=== PATIENT | female | born 1990 | race Two or more races ===

== ENCOUNTER 2017-01-11 20:04 | Emergency (ER) | payer OTHER ==
[2017-01-11 20:28] VITALS: BP 114/81
--- NOTE | 2017-01-11 21:02 | EDM.PDOC ---
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 01/11/17 [Rx] Past Medical History Neurological History: Reports: Migraines Social & Family History - Tobacco Use Smoking Status *Q: Never Smoker - Caffeine Use Caffeine Use: Reports: None - Recreational Drug Use Recreational Drug Use: No ED ROS GENERAL - Review of Systems Review Of Systems: See Below Constitutional: Reports: chills, decreased appetite. Denies: fever Respiratory: Reports: no symptoms Cardiovascular: Reports: No symptoms GI/Abdominal: Reports: Abdominal pain (patient reports central upper epigastric abdominal pain that intially started about 2 weeks ago with acute onset and then resovled. Returned today, unprovoked by eating/drinking. ), Diarrhea (has had diarrhea on one occasion, but not persistent. No blood in stool. ), Decreased appetite. Denies: Nausea, Vomiting : Reports: flank pain (left flank pain). Denies: dysuria, frequency, hematuria, urgency Musculoskeletal: Reports: neck pain (on re-evaluation, patient does also report left sided lateral neck pain and pain to palpation along base of neck. Neck reportedly feels 'stiff'. no injury that she is aware of.), back pain (back pain started about 2 weeks ago, to lower midline lumbar spine, denies any injury ) Neurological: Reports: dizziness (on re-assessment, patient reports she has also had dizziness x 3 weeks, does not occur with positional changes. Denies any associated headaches, vision changes, does appear to be more noticeable towards the end of the day. She denies any change in diet/liquid intake, denies excess caffeine use. ) ED EXAM, RENAL/ - Physical Exam Exam: See Below Exam Limited By: No limitations General Appearance: alert, WD/WN, no apparent distress Ears: normal external exam, normal TMs Neck: other (patient has tenderness to posterior left lateral apsect of cervical spine, along left trapezius. She has normal, uninhibited range of motion, tenderness along left latera SCM muscle) Course - Vital Signs Text/Narrative:: 2149 Patient reports her central epigastric abdominal pain has slightly improved, but she is still having upper lumbar back pain. I did advise that i was awaiting her labs and abdominal xray, inquired if she needed anything for pain or nausea, and she declined stating she was okay for now. 2226 Did review labs and xray with patient. This was done through use of spinning frame cleaner video services. Patient did add that her abdominal pain started following her eating spicy chicken soup and a soda. She did also add that she has felt dizzy x 3 weeks and having left sided neck stiffness. She denies any change to activity, heavy lifting, or change in sleep positions. She has not tried any OTC treatment. She reports dizziness has been occasional, worse throughout the day, not associated with any vision changes, headache and that pain is present when she opens her mouth. Did advise I would obtain orthostatics prior to her leaving to ensure they are normal. Did advise that I will recommend starting a PPI, increasing water intake, and recommendations for trial of meclizine and OTC NSAIDS and refer to family practice if symptoms not improving. Last Recorded V/S: Last Vital Signs Temp 98.1 F 01/11/17 20:25 Pulse 87 01/11/17 20:25 Resp 16 01/11/17 20:25 BP 114/81 01/11/17 20:25 Pulse Ox 100 01/11/17 20:25 Orthostatic Blood Pressure [ 106/81 Standing] Orthostatic Blood Pressure [ 108/74 Sitting] Orthostatic Blood Pressure [ 104/72 Supine] - Orders/Labs/Meds Labs: Laboratory Tests 01/11/17 01/11/17 01/11/17 Range/Units 21:00 21:00 21:03 WBC 7.27 (3.98-10.04) K/mm3 RBC 4.33 (3.98-5.22) M/mm3 Hgb 13.3 (11.2-15.7) gm/L Hct 40.1 (34.1-44.9) % MCV 92.6 (79.4-94.8) fl MCH 30.7 (25.6-32.2) pg MCHC 33.2 (32.2-35.5) g/dl RDW Std Deviation 42.6 (36.4-46.3) fL Plt Count 212 (182-369) K/mm3 MPV 10.6 (9.4-12.3) fl Neut % (Auto) 73.0 H (34.0-71.1) % Lymph % (Auto) 15.0 L (19.3-51.7) % [place] % (Auto) 11.0 (4.7-12.5) % Eos % (Auto) 0.8 (0.7-5.8) Baso % (Auto) 0.1 (0.1-1.2) % Neut # 5.30 (1.56-6.13) K/mm3 Lymph # 1.09 L (1.18-3.74) K/mm3 [place] # 0.80 H (0.24-0.36) K/mm3 Eos # 0.06 (0.04-0.36) K/mm3 Baso # 0.01 (0.01-0.08) K/mm3 Sodium (136-145) mEq/L Potassium (3.5-5.1) mEq/L Chloride (98-107) mEq/L Carbon Dioxide (21-32) mEq/L Anion Gap (5-15) BUN (7-18) mg/dL Creatinine (0.55-1.02) mg/dL Est Cr Clr Drug Dosing Estimated GFR (MDRD) (>60) mL/min BUN/Creatinine Ratio (14-18) Glucose (74-106) mg/dL Calcium (8.5-10.1) mg/dL Total Bilirubin (0.2-1.0) mg/dL AST (15-37) U/L ALT (14-59) U/L Alkaline Phosphatase (46-116) U/L C-Reactive Protein (<1.0) mg/dL Total Protein (6.4-8.2) g/dl Albumin (3.4-5.0) g/dl Globulin gm/dL Albumin/Globulin Ratio (1-2) Urine Color Light yellow (Yellow) Urine Appearance Clear (Clear) Urine pH 7.0 (5.0-8.0) Ur Specific [place] 1.020 (1.005-1.030) Urine Protein Negative (Negative) Urine Glucose (UA) Negative (Negative) Urine Ketones Negative (Negative) Urine Occult Blood Negative (Negative) Urine Nitrite Negative (Negative) Urine Bilirubin Negative (Negative) Urine Urobilinogen 0.2 (0.2-1.0) Ur Leukocyte Esterase Negative (Negative) Urine RBC Not seen (0-5) /hpf Urine WBC 0-5 (0-5) /hpf Ur Squamous Epith Cells 0-5 (0-5) /hpf Urine Bacteria Few (FEW) /hpf Urine Mucus Not seen (FEW) /hpf Urine HCG, Qual Negative (NEGATIVE) H. pylori IgG Antibody (NEGATIVE) 01/11/17 01/11/17 Range/Units 21:03 21:03 WBC (3.98-10.04) K/mm3 RBC (3.98-5.22) M/mm3 Hgb (11.2-15.7) gm/L Hct (34.1-44.9) % MCV (79.4-94.8) fl MCH (25.6-32.2) pg MCHC (32.2-35.5) g/dl RDW Std Deviation (36.4-46.3) fL Plt Count (182-369) K/mm3 MPV (9.4-12.3) fl Neut % (Auto) (34.0-71.1) % Lymph % (Auto) (19.3-51.7) % [place] % (Auto) (4.7-12.5) % Eos % (Auto) (0.7-5.8) Baso % (Auto) (0.1-1.2) % Neut # (1.56-6.13) K/mm3 Lymph # (1.18-3.74) K/mm3 [place] # (0.24-0.36) K/mm3 Eos # (0.04-0.36) K/mm3 Baso # (0.01-0.08) K/mm3 Sodium 139 (136-145) mEq/L Potassium 3.7 (3.5-5.1) mEq/L Chloride 103 (98-107) mEq/L Carbon Dioxide 26 (21-32) mEq/L Anion Gap 13.7 (5-15) BUN 11 (7-18) mg/dL Creatinine 0.7 (0.55-1.02) mg/dL Est Cr Clr Drug Dosing TNP Estimated GFR (MDRD) > 60 (>60) mL/min BUN/Creatinine Ratio 15.7 (14-18) Glucose 103 (74-106) mg/dL Calcium 8.7 (8.5-10.1) mg/dL Total Bilirubin 0.3 (0.2-1.0) mg/dL AST 14 L (15-37) U/L ALT 22 (14-59) U/L Alkaline Phosphatase 62 (46-116) U/L C-Reactive Protein < 0.2 (<1.0) mg/dL Total Protein 7.4 (6.4-8.2) g/dl Albumin 4.2 (3.4-5.0) g/dl Globulin 3.2 gm/dL Albumin/Globulin Ratio 1.3 (1-2) Urine Color (Yellow) Urine Appearance (Clear) Urine pH (5.0-8.0) Ur Specific [place] (1.005-1.030) Urine Protein (Negative) Urine Glucose (UA) (Negative) Urine Ketones (Negative) Urine Occult Blood (Negative) Urine Nitrite (Negative) Urine Bilirubin (Negative) Urine Urobilinogen (0.2-1.0) Ur Leukocyte Esterase (Negative) Urine RBC (0-5) /hpf Urine WBC (0-5) /hpf Ur Squamous Epith Cells (0-5) /hpf Urine Bacteria (FEW) /hpf Urine Mucus (FEW) /hpf Urine HCG, Qual (NEGATIVE) H. pylori IgG Antibody Negative (NEGATIVE) Departure - Departure Time of Disposition: 22:48 Disposition: Home, Self-Care 01 Condition: good Clinical Impression: Abdominal pain, Back pain, Cervicalgia, Dizziness Prescriptions: Naproxen [EC-Naprosyn] 500 mg PO BID #30 tablet. Instructions: Abdominal Pain, Adult, [id number] Referrals: PCP,None [Primary Care Provider] - Lakeshia Tom PA-C [Emergency Provider] - Forms: ED Department Discharge Additional Instructions: Your lab work from today was normal. Your abdominal xray did not show any acute findings. I will recommend that you start taking an over the counter medication , omeprazole (prilosec). Take this once daily in the morning, prior to your first morning meal. Regarding your neck and back pain, I will prescribe a medication called naproxen, take as directed (with food). I would also like you to increase water intake, avoid excess caffeine, follow a bland diet. Your vitals and additional blood pressure readings are normal, so for your dizziness , ensure you increase fluids and can consider over the counter meclizine, take as directed. If your symptoms are not improving, recommend follow-up with our family practice clinic in 1 week, and do not hesitate to return to ED if symptoms are worsening.
--- NOTE | 2017-01-12 10:43 | CR ---
Abdomen: Supine and upright views of the abdomen were obtained. Comparison: No previous study. Bowel gas pattern appears within normal limits. No free air is seen. No abnormal calcifications or discrete soft tissue abnormality is seen. Bony structures are unremarkable. Impression: 1. No abnormality is identified on two-view abdominal x-ray. Diagnostic code #1
== END 2017-01-11 23:09 | disposition home or self-care (01) ==
LOC: JD.ED 20:04
DX: M54.2 Cervicalgia (principal); R42 Dizziness and giddiness; M54.5 Low back pain; R10.10 Upper abdominal pain, unspecified; R10.13 Epigastric pain
CPT/HCPCS: 36415; 74020; 74020-26; 80053; 81001; 81025; 85025; 86140; 86677; 99283; 99284

== ENCOUNTER 2018-05-20 11:07 | Inpatient (IN) | payer MEDICAID, OTHER ==
[2018-05-20] MEDS ORDERED: Ondansetron 4 MG/2 ML SDV IVPUSH PRN (11:22)
[2018-05-20] MEDS ORDERED: Sodium Chloride 0.9% 10 ML Syringe FLUSH PRN (11:22)
[2018-05-20] MEDS ORDERED: Nalbuphine 20 MG/ML 1 ML Syringe IVPUSH PRN (11:22)
--- NOTE | 2018-05-20 11:25 | PCM.LDHP ---
L&D History of Present Illness - General Date of Service: 05/20/18 Admit Problem/Dx: Patient Status Order with Admit Dx/Problem 05/20/18 11:22 Patient Status [ADT] Routine Admission Diagnosis/Problem Admission Diagnosis/Problem Normal labor Source of Information: Patient History Limitations: Reports: No Limitations - History of Present Illness Introduction:: Patient is a 28 y/o at 39 4/7 wks who presents in labor. States had some contractions this AM and then LOF around 0930. Contractions have gotten stronger since ROM. Was seen in clinic earlier this AM and found to be 5 cm. Was asked to come to L&D. - Related Data Allergies/Adverse Reactions: Allergies Allergy/AdvReac Type Severity Reaction Status Date / Time No Known Allergies Allergy Verified 01/11/17 20:28 Home Medications: Home Meds Naproxen [EC-Naprosyn] 500 mg PO BID #30 tablet. 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 : 3 Para: 1 LMP (Approximate): Neurological History: Reports: Migraines Social & Family History - Tobacco Use Smoking Status *Q: Never Smoker - Caffeine Use Caffeine Use: Reports: None - Alcohol Use Alcohol Use History: No - Recreational Drug Use Recreational Drug Use: No H&P Review of Systems - Review of Systems: Review Of Systems: See Below General: Reports: No Symptoms Pulmonary: Reports: No Symptoms Cardiovascular: Reports: No Symptoms Gastrointestinal: Reports: No Symptoms Genitourinary: Reports: No Symptoms Musculoskeletal: Reports: No Symptoms Psychiatric: Reports: No Symptoms Neurological: Reports: No Symptoms L&D Exam - Exam Exam: See Below - OB Specific Contraction Intensity: Moderate Movement: Active Heart Tones: Present Heart Tones per Min: 130 Heart Rate (FHR) Variability: Moderate (6-25 bmp) Presentation: Vertex - Zarco Score Zarco Score Cervix Position: Midposition Zarco Score Consistency: Soft Zarco Score Effacement: 51-70% Zarco Score Dilation: > 5 cm Zarco Score Infant's Station: -2 Zarco Score Total: 9 - Exam General: Alert, Oriented, Cooperative Lungs: Clear to Auscultation, Normal Respiratory Effort Cardiovascular: Regular Rate, Regular Rhythm GI/Abdominal Exam: Soft, Non-Tender Genitourinary: Normal external exam Back Exam: Normal Inspection Extremities: Normal Inspection Skin: Warm, Dry, Intact - Patient Data Result Diagrams: 05/20/18 11:58 - Problem List (1) 39 weeks gestation of SNOMED Code(s): 60992858 ICD Code: Z3A.39 - 39 WEEKS GESTATION OF Status: Acute Current Visit: Yes (2) Normal labor SNOMED Code(s): 81494934 ICD Code: O80 - ENCOUNTER FOR FULL-TERM UNCOMPLICATED DELIVERY; Z37.9 - OUTCOME OF DELIVERY, UNSPECIFIED Status: Acute Current Visit: Yes Problem List Initiated/Reviewed/Updated: Yes Orders Last 24hrs: Active Orders 24 hr Category Date Time Status Patient Status [ADT] Routine ADT 05/20/18 11:22 Ordered Activity as Tolerated [RC] PFP Care 05/20/18 11:22 Ordered Communication Order [RC] ASDIRECTED Care 05/20/18 11:22 Ordered Heart Tones [RC] ASDIRECTED Care 05/20/18 11:23 Ordered Notify Provider [RC] PFP Care 05/20/18 11:22 Ordered Notify Provider [RC] PRN Care 05/20/18 11:22 Ordered Peripheral IV Care [RC] . DIRECTED Care 05/20/18 11:23 Ordered Vital Signs [RC] PER UNIT ROUTINE Care 05/20/18 11:22 Ordered Regular Diet [DIET] Diet 05/20/18 Lunch Ordered CBC W/O DIFF,HEMOGRAM [HEME] Routine Lab 05/20/18 11:22 Ordered RAPID PLASMA REAGIN,RPR [CHEM] Routine Lab 05/20/18 11:22 Ordered TYPE AND SCREEN [BBK] Routine Lab 05/20/18 11:22 Ordered Lactated Ringers [Ringers, Lactated] 1,000 ml Med 05/20/18 11:30 Ordered IV ASDIRECTED Nalbuphine [Nubain] Med 05/20/18 11:22 Ordered 10 mg IVPUSH Q2H PRN Ondansetron [Zofran] Med 05/20/18 11:22 Ordered 4 mg IVPUSH Q4H PRN Oxytocin/Lactated Ringers [Pitocin in LR 10 Units/1,000 Med 05/20/18 11:30 Ordered ML] 10 unit in 1,000 ml IV .CONTINUOUS Sodium Chloride 0.9% [Saline Flush] Med 05/20/18 11:22 Ordered 10 ml FLUSH ASDIRECTED PRN Electronic Heart Tones Ext w TOCO [WOMSER] Oth 05/20/18 11:22 Ordered Routine Electronic Heart Tones Internal [WOMSER] Per Unit Ot 05/20/18 11:22 Ordered Routine Peripheral IV Insertion Adult [OM.PC] Routine Oth 05/20/18 11:22 Ordered Resuscitation Status Routine Resus Stat 05/20/18 11:22 Ordered Medication Orders Lactated Ringer's (Ringers, Lactated) 1,000 mls @ 100 mls/hr IV ASDIRECTED AGATHA Oxytocin/Lactated Ringer's (Pitocin In Lr 10 Units/1,000 Ml) 10 unit in 1,000 mls @ 500 mls/hr IV .CONTINUOUS AGATHA Nalbuphine HCl (Nubain) 10 mg IVPUSH Q2H PRN PRN Reason: Pain (moderate 4-6) Ondansetron HCl (Zofran) 4 mg IVPUSH Q4H PRN PRN Reason: Nausea/Vomiting Sodium Chloride (Saline Flush) 10 ml FLUSH ASDIRECTED PRN PRN Reason: Keep Vein Open Assessment/Plan Comment:: 28 y/o at 39 4/7 wks presents in labor/srom * CBC, RPR, T&S * Pain management per patient request * GBS negative, no need for antibiotics * Anticipate
[2018-05-20] MEDS ORDERED: Oxytocin/Lactated Ringers 10 UNIT/1,000 ML BAG IV SCH (11:30)
[2018-05-20] MEDS ORDERED: Lactated Ringers 1,000 ML IV SCH (11:30)
--- NOTE | 2018-05-20 16:40 | PCM.DEL ---
L & D Note - General Info Date of Service: 05/20/18 - Delivery Note Labor: Spontaneous Delivery Outcome: Livebirth Delivery Method: Spontaneous Vaginal Delivery-Single Delivery Mode: Spontaneous Presentation: Right Occiput Anterior (CONOR) Nuchal Cord: None Anesthesia Type: None Amniotic Fluid Description: Clear Episiotomy Type: None Laceration: None Placenta: Intact, Spontaneous Cord: 3 Vessels Estimated Blood Loss: 200 Resuscitation Needed: Yes Eugene: Bulb Syringe, Stimulated, Warmed, Talala Used Delivery Comments (Free Text/Narrative):: Patient found to be complete and began pushing. With maternal pushing effort head delivered from an CONOR presentation. No nuchal cord present. With gentle downward traction the shoulders and body delivered. Infant placed on maternal abdomen. Cord clamped and cut. Cord blood obtained. Placenta allowed time to separate and expelled intact. Inspection of the perineum showed no lacerations. - General Info Date of Service: 05/20/18 - Patient Data Vitals - Most Recent: Last Vital Signs Temp Pulse 78 05/20/18 15:01 Resp BP 121/64 05/20/18 15:01 Pulse Ox Weight - Most Recent: 78.471 kg I&O - Last 24 Hours: Intake & Output 05/20/18 05/20/18 05/20/18 06:59 14:59 22:59 Intake Total 120 Balance 120 Lab Results Last 24 Hours: Laboratory Results - last 24 hr 05/20/18 05/20/18 Range/Units 11:58 11:58 WBC 10.95 H (3.98-10.04) K/mm3 RBC 3.99 (3.98-5.22) M/mm3 Hgb 12.4 (11.2-15.7) gm/L Hct 37.6 (34.1-44.9) % MCV 94.2 (79.4-94.8) fl MCH 31.1 (25.6-32.2) pg MCHC 33.0 (32.2-35.5) g/dl RDW Std Deviation 46.2 (36.4-46.3) fL Plt Count 176 L (182-369) K/mm3 MPV 10.5 (9.4-12.3) fl Blood Type O POSITIVE Gel Antibody Screen Negative Med Orders - Current: Current Medications Lactated Ringer's (Ringers, Lactated) 1,000 mls @ 100 mls/hr IV ASDIRECTED AGATHA Oxytocin/Lactated Ringer's (Pitocin In Lr 10 Units/1,000 Ml) 10 unit in 1,000 mls @ 500 mls/hr IV .CONTINUOUS AGATHA Nalbuphine HCl (Nubain) 10 mg IVPUSH Q2H PRN PRN Reason: Pain (moderate 4-6) Ondansetron HCl (Zofran) 4 mg IVPUSH Q4H PRN PRN Reason: Nausea/Vomiting Sodium Chloride (Saline Flush) 10 ml FLUSH ASDIRECTED PRN PRN Reason: Keep Vein Open - Problem List & Annotations (1) 39 weeks gestation of SNOMED Code(s): 94965615 Code(s): Z3A.39 - 39 WEEKS GESTATION OF Status: Acute Current Visit: Yes (2) Normal labor SNOMED Code(s): 85687691 Code(s): O80 - ENCOUNTER FOR FULL-TERM UNCOMPLICATED DELIVERY; Z37.9 - OUTCOME OF DELIVERY, UNSPECIFIED Status: Acute Current Visit: Yes (3) Vaginal delivery SNOMED Code(s): 974024579 Code(s): O80 - ENCOUNTER FOR FULL-TERM UNCOMPLICATED DELIVERY Status: Acute Current Visit: Yes - Problem List Review Problem List Initiated/Reviewed/Updated: Yes - My Orders Last 24 Hours: My Active Orders 05/20/18 11:22 Patient Status [ADT] Routine Activity as Tolerated [RC] PFP Communication Order [RC] ASDIRECTED Vital Signs [RC] 03,09,15,21 Nalbuphine [Nubain] 10 mg IVPUSH Q2H PRN Ondansetron [Zofran] 4 mg IVPUSH Q4H PRN Sodium Chloride 0.9% [Saline Flush] 10 ml FLUSH ASDIRECTED PRN Electronic Heart Tones Ext w TOCO [WOMSER] Routine Electronic Heart Tones Internal [WOMSER] Per Unit Routine Peripheral IV Insertion Adult [OM.PC] Routine Resuscitation Status Routine 05/20/18 11:23 Peripheral IV Care [RC] Q2HR 05/20/18 11:30 Lactated Ringers [Ringers, Lactated] 1,000 ml IV ASDIRECTED Oxytocin/Lactated Ringers [Pitocin in LR 10 Units/1,000 ML] 10 unit in 1,000 ml IV .CONTINUOUS 05/20/18 11:58 PATIENT RETYPE [BBK] Routine RAPID PLASMA REAGIN,RPR [CHEM] Routine TYPE AND SCREEN [BBK] Routine 05/20/18 16:39 Patient Status Manage Transfer [TRANSFER] Routine 05/20/18 Lunch Regular Diet [DIET] - Assessment Assessment:: 28 y/o G3 now P2012 now PPD#0 from - Plan Plan:: * Routine cares * Encourage breast feeding * Discharge home in 1 day
[2018-05-20] MEDS ORDERED: Docusate Sodium 100 MG Cap PO PRN (17:11)
[2018-05-20] MEDS ORDERED: Acetaminophen 325 MG Tab PO PRN (17:11)
[2018-05-20] MEDS ORDERED: Ibuprofen 600 MG Tab PO PRN (17:11)
[2018-05-20] MEDS ORDERED: Benzocaine/Menthol 20%-0.5% Spray 56 GM Canister TOP PRN (17:11)
[2018-05-20] MEDS ORDERED: Lanolin 100% Cream 7 GM Tube TOP PRN (17:11)
[2018-05-20] MEDS ORDERED: Witch Hazel Medicated Pads 100/Jar TOP PRN (17:11)
--- NOTE | 2018-05-21 06:57 | PCM.PNPP ---
- General Info Date of Service: 05/21/18 Functional Status: Reports: Pain Controlled, Tolerating Diet, Ambulating, Urinating - Review of Systems General: Reports: No Symptoms Pulmonary: Reports: No Symptoms Cardiovascular: Reports: No Symptoms Gastrointestinal: Reports: No Symptoms Genitourinary: Reports: No Symptoms Musculoskeletal: Reports: No Symptoms Neurological: Reports: No Symptoms - Patient Data Vital Signs - Most Recent: Last Vital Signs Temp 36.6 C 05/21/18 03:00 Pulse 84 05/21/18 03:00 Resp 16 05/21/18 03:00 BP 126/78 05/21/18 03:00 Pulse Ox 100 05/21/18 03:00 Weight - Most Recent: 78.471 kg I&O - Last 24 Hours: Intake & Output 05/20/18 05/20/18 05/21/18 14:59 22:59 06:59 Intake Total 1040 Balance 1040 Lab Results - Last 24 Hours: Laboratory Results - last 24 hr 05/20/18 05/20/18 Range/Units 11:58 11:58 WBC 10.95 H (3.98-10.04) K/mm3 RBC 3.99 (3.98-5.22) M/mm3 Hgb 12.4 (11.2-15.7) gm/L Hct 37.6 (34.1-44.9) % MCV 94.2 (79.4-94.8) fl MCH 31.1 (25.6-32.2) pg MCHC 33.0 (32.2-35.5) g/dl RDW Std Deviation 46.2 (36.4-46.3) fL Plt Count 176 L (182-369) K/mm3 MPV 10.5 (9.4-12.3) fl Blood Type O POSITIVE Gel Antibody Screen Negative Med Orders - Current: Current Medications Acetaminophen (Tylenol) 650 mg PO Q4H PRN PRN Reason: mild pain or fever Benzocaine/Menthol (Dermoplast Pain Relief [place]) 0 gm TOP ASDIRECTED PRN PRN Reason: Perineal Comfort Measure Docusate Sodium (Colace) 100 mg PO BID PRN PRN Reason: Constipation Emollient Ointment (Lansinoh Hpa) 0 gm TOP ASDIRECTED PRN PRN Reason: Sore Nipples Last Admin: 05/21/18 04:41 Dose: 1 applic Ibuprofen (Motrin) 600 mg PO Q6H PRN PRN Reason: Mild pain or fever Last Admin: 05/21/18 03:37 Dose: 600 mg Witch Deya (Tucks) 1 pad TOP ASDIRECTED PRN PRN Reason: Hemorrhoid pain Discontinued Medications Lactated Ringer's (Ringers, Lactated) 1,000 mls @ 100 mls/hr IV ASDIRECTED AGATHA Oxytocin/Lactated Ringer's (Pitocin In Lr 10 Units/1,000 Ml) 10 unit in 1,000 mls @ 500 mls/hr IV .CONTINUOUS AGATHA Nalbuphine HCl (Nubain) 10 mg IVPUSH Q2H PRN PRN Reason: Pain (moderate 4-6) Ondansetron HCl (Zofran) 4 mg IVPUSH Q4H PRN PRN Reason: Nausea/Vomiting Sodium Chloride (Saline Flush) 10 ml FLUSH ASDIRECTED PRN PRN Reason: Keep Vein Open - Infant Interaction Disposition, : in Room with Family Interaction: Holding Infant Feeding: Attempted ; Nursed Fair/Poor Support Person: - Recovery Exam Fundal Tone: Firm Fundal Level: At Umbilicus Fundal Placement: Midline Lochia Amount: Scant, Small Lochia Color: Rubra/Red Perineum Description: Intact, Minimal Bruising/Swelling Bladder Status: Voiding Urinary Elimination: Voided - Exam General: Alert, Oriented, Cooperative GI/Abdominal Exam: Soft, Non-Tender Extremities: Normal Inspection Skin: Warm, Dry, Intact - Problem List & Annotations (1) 39 weeks gestation of SNOMED Code(s): 12999486 Code(s): Z3A.39 - 39 WEEKS GESTATION OF Status: Acute Current Visit: Yes (2) Normal labor SNOMED Code(s): 13115062 Code(s): O80 - ENCOUNTER FOR FULL-TERM UNCOMPLICATED DELIVERY; Z37.9 - OUTCOME OF DELIVERY, UNSPECIFIED Status: Acute Current Visit: Yes (3) Vaginal delivery SNOMED Code(s): 909422577 Code(s): O80 - ENCOUNTER FOR FULL-TERM UNCOMPLICATED DELIVERY Status: Acute Current Visit: Yes - Problem List Review Problem List Initiated/Reviewed/Updated: Yes - My Orders Last 24 Hours: My Active Orders 05/20/18 11:22 Vital Signs [RC] 03,,, Resuscitation Status Routine 05/20/18 11:58 RAPID PLASMA REAGIN,RPR [CHEM] Routine 05/20/18 17:11 Activity as Tolerated [RC] PER UNIT ROUTINE Vital Signs [RC] 03,,,21 Acetaminophen [Tylenol] 650 mg PO Q4H PRN Benzocaine/Menthol [Dermoplast Pain Relief [place]] See Dose Instructions TOP ASDIRECTED PRN Docusate Sodium [Colace] 100 mg PO BID PRN Ibuprofen [Motrin] 600 mg PO Q6H PRN Lanolin [Lansinoh HPA] See Dose Instructions TOP ASDIRECTED PRN Witch Deya [Tucks] 1 pad TOP ASDIRECTED PRN Assess Lochia [WOMSER] Per Unit Routine Assess Uterine Involution [WOMSER] Per Unit Routine Breast Pump [WOMSER] Per Unit Routine Heat Therapy [OM.PC] PRN Ice Therapy [OM.PC] Per Unit Routine Perineal Care [OM.PC] Per Unit Routine Peripheral IV Discontinue [OM.PC] Routine Sitz Bath [OM.PC] Per Unit Routine 05/20/18 Dinner Regular Diet [DIET] 05/21/18 06:52 Ready for Discharge [RC] PER UNIT ROUTINE 05/21/18 17:11 Heat Therapy [OM.PC] PRN - Assessment Assessment:: 28 y/o G3 now P2012 now PPD#1 from - Plan Plan:: * Routine cares * Encourage breast feeding * Discharge home today
--- NOTE | 2018-05-21 07:25 | PCM.DCSUM1 ---
Discharge Summary - Discharge Data Discharge Date: 05/21/18 Discharge Disposition: Home, Self-Care 01 Condition: Good - Discharge Diagnosis/Problem(s) (1) 39 weeks gestation of SNOMED Code(s): 00230867 ICD Code: Z3A.39 - 39 WEEKS GESTATION OF Status: Acute (2) Normal labor SNOMED Code(s): 66100468 ICD Code: O80 - ENCOUNTER FOR FULL-TERM UNCOMPLICATED DELIVERY; Z37.9 - OUTCOME OF DELIVERY, UNSPECIFIED Status: Acute (3) Vaginal delivery SNOMED Code(s): 073509175 ICD Code: O80 - ENCOUNTER FOR FULL-TERM UNCOMPLICATED DELIVERY Status: Acute - Patient Summary/Data Complications: None Consults: None Recommended Follow-up Testing/Procedures: Follow up in 3-6 weeks for check Hospital Course: Merna is a 28 y/o who presented at 39 4/7 wks in labor. She progressed well on her own. Underwent an uncomplicated . See delivery note. she did well and was discharged home on PPD#1 - Patient Instructions Diet: Regular Diet as Tolerated Activity: As Tolerated Activity, Other: Pelvic rest for 6 weeks Driving: May Drive Today Showering/Bathing: May Shower Showering/Bathing, Other: May bathe Notify Provider of: Fever, Increased Pain, Swelling and Redness, Drainage, Nausea and/or Vomiting - Discharge Plan *PRESCRIPTION DRUG MONITORING PROGRAM REVIEWED*: Not Applicable *COPY OF PRESCRIPTION DRUG MONITORING REPORT IN PATIENT POLI: Not Applicable Home Medications: Home Meds Vit W-Ca,Fe,FA(<1 mg) [ Vitamins] 1 each PO DAILY 05/20/18 [ History] Docusate Sodium [Colace] 100 mg PO BID PRN cap 05/21/18 [Rx] Ibuprofen [Motrin] 600 mg PO Q6H PRN tablet 05/21/18 [Rx] Patient Handouts: Home Care Instructions for Mom, Tips for a Good Latch Referrals: Daphne Ochoa MD [Primary Care Provider] - (3-6 weeks for check ) - Discharge Summary/Plan Comment DC Time >30 min.: No - Patient Data Vitals - Most Recent: Last Vital Signs Temp 36.6 C 05/21/18 03:00 Pulse 84 05/21/18 03:00 Resp 16 05/21/18 03:00 BP 126/78 05/21/18 03:00 Pulse Ox 100 05/21/18 03:00 Weight - Most Recent: 78.471 kg I&O - Last 24 hours: Intake & Output 05/20/18 05/21/18 05/21/18 22:59 06:59 14:59 Intake Total 1040 Balance 1040 Lab Results - Last 24 hrs: Laboratory Results - last 24 hr 05/20/18 05/20/18 Range/Units 11:58 11:58 WBC 10.95 H (3.98-10.04) K/mm3 RBC 3.99 (3.98-5.22) M/mm3 Hgb 12.4 (11.2-15.7) gm/L Hct 37.6 (34.1-44.9) % MCV 94.2 (79.4-94.8) fl MCH 31.1 (25.6-32.2) pg MCHC 33.0 (32.2-35.5) g/dl RDW Std Deviation 46.2 (36.4-46.3) fL Plt Count 176 L (182-369) K/mm3 MPV 10.5 (9.4-12.3) fl Blood Type O POSITIVE Gel Antibody Screen Negative Med Orders - Current: Current Medications Acetaminophen (Tylenol) 650 mg PO Q4H PRN PRN Reason: mild pain or fever Benzocaine/Menthol (Dermoplast Pain Relief [place]) 0 gm TOP ASDIRECTED PRN PRN Reason: Perineal Comfort Measure Docusate Sodium (Colace) 100 mg PO BID PRN PRN Reason: Constipation Emollient Ointment (Lansinoh Hpa) 0 gm TOP ASDIRECTED PRN PRN Reason: Sore Nipples Last Admin: 05/21/18 04:41 Dose: 1 applic Ibuprofen (Motrin) 600 mg PO Q6H PRN PRN Reason: Mild pain or fever Last Admin: 05/21/18 03:37 Dose: 600 mg Witch Deya (Tucks) 1 pad TOP ASDIRECTED PRN PRN Reason: Hemorrhoid pain Discontinued Medications Lactated Ringer's (Ringers, Lactated) 1,000 mls @ 100 mls/hr IV ASDIRECTED AGATHA Oxytocin/Lactated Ringer's (Pitocin In Lr 10 Units/1,000 Ml) 10 unit in 1,000 mls @ 500 mls/hr IV .CONTINUOUS AGATHA Nalbuphine HCl (Nubain) 10 mg IVPUSH Q2H PRN PRN Reason: Pain (moderate 4-6) Ondansetron HCl (Zofran) 4 mg IVPUSH Q4H PRN PRN Reason: Nausea/Vomiting Sodium Chloride (Saline Flush) 10 ml FLUSH ASDIRECTED PRN PRN Reason: Keep Vein Open
== END 2018-05-21 14:20 | disposition home or self-care (01) | DRG 775 ==
LOC: JD.OBCHECK 11:07 → JD.OB 11:07 → UNDOADMOB 11:22 → JD.OBCHECK 11:22 → JD.OB 13:44 → OBSVTOIN 13:44
PROVIDERS: ADMIT Obstetrics & Gynecology; ATTEND Obstetrics & Gynecology
PROC: 10E0XZZ Delivery of Products of Conception, External Approach (ICD-10-PCS; principal; 2018-05-20)
PROC: 6A550ZT Pheresis of Cord Blood Stem Cells, Single (ICD-10-PCS; 2018-05-20)
DX: O80 Encounter for full-term uncomplicated delivery (principal); Z3A.39 39 weeks gestation of pregnancy; Z37.0 Single live birth
CPT/HCPCS: 36415; 59025; 59409; 85027; 86592; 86850; 86900; 86901; A9270-GY

== ENCOUNTER 2020-03-11 10:05 | Observation (INO) | payer MEDICAID, OTHER ==
--- NOTE | 2020-03-11 11:38 | EDM.PDOC ---
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 Bradford is a very pleasant 30-year-old woman -0-1-2, with a past medical history significant for a spontaneous in July 2017, who states that her LMP was 12/21/2019. She states that she developed painless vaginal spotting this past 03/06/2020. She states that by that night, it had ceased. 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 At that time, she was not bleeding. Transvaginal ultrasound dated Sunday, 2019 was read as "Single gestational sac is identified within the retroverted uterus. The gestational sac contains 2 adjacent slightly irregular yolk sacs with a single tiny associated pole. [place]-rump length measures 0.3 cm corresponding to a 6-week 0-day gestation. No heart motion is detected. Findings could represent early gestation prior to detection of heart motion. demise is not excluded, and close follow-up is recommended. The significance of the second yolk sac is uncertain." The patient states that a repeat ultrasound is scheduled for 03/16/2020. The patient states that she redeveloped vaginal bleeding later that same evening , following the ultrasound, and that she continued to have spotting on Sunday and Sunday, as well. She states that when she woke up this morning, she had a large amount of blood and clots already in her vagina. She has continued to have significant painless bleeding, passing clots, all day today. She also reports feeling dizzy when upright. Here in the ED, the patient is found to be hemodynamically stable, afebrile, saturating 100% on room air. Other than vaginal bleeding, the patient denies recent fever, chills, sore throat, ear pain, nasal or sinus congestion, cough, dyspnea, chest pain, palpitations, nausea, vomiting, constipation, diarrhea, abdominal pain, urinary symptoms, recent weight gain or weight loss, recent bloody bowel movements or black bowel movements, recent joint aches, headaches, or rashes. Medical records indicate that the patient's blood type is O-positive. The patient does not have a PCP. Her AMMONIA OPERATOR is Dr. Daphne Ochoa. - Related Data Allergies Allergy/AdvReac Type Severity Reaction Status Date / Time No Known Allergies Allergy Verified 01/11/17 20:28 Home Meds: Home Meds Vit Calc,Iron,Folic [ Vitamins] 1 each PO DAILY 05/20/18 [ History] Past Medical History AMMONIA OPERATOR History: Reports: Spontaneous (Jul 2017) : 4 Para: 2 Neurological History: Reports: Migraines (rare) Social & Family History - Family History Family Medical History: Noncontributory HEENT: Reports: None Cardiac: Reports: None Respiratory: Reports: None GI: Reports: None OBGYN: Reports: None Musculoskeletal: Reports: None Neurological: Reports: None Psychiatric: Reports: None - Tobacco Use Smoking Status *Q: Never Smoker - Caffeine Use Caffeine Use: Reports: None - Alcohol Use Alcohol Use History: No - Recreational Drug Use Recreational Drug Use: No - Living Situation & Occupation Living situation: Reports: , with Spouse, with Family (2 kids) Occupation: Unemployed ED ROS GENERAL - Review of Systems Review Of Systems: Comprehensive ROS is negative, except as noted in HPI. ED EXAM - Physical Exam Exam: See Below Exam Limited By: No Limitations General Appearance: Alert, WD/WN, No Apparent Distress Eye Exam: Bilateral Eye: EOMI, Normal Inspection Ears: Normal External Exam, Hearing Grossly Normal Nose: Normal Inspection Throat/Mouth: Normal Inspection, Normal Lips, Normal Voice, No Airway Compromise Head: Atraumatic, Normocephalic Neck: Normal Inspection, Full Range of Motion Respiratory/Chest: No Respiratory Distress, Lungs Clear, Normal Breath Sounds, No Accessory Muscle Use Cardiovascular: Normal Peripheral Pulses, Regular Rate, Rhythm, No Edema, No Gallop, No JVD, No Murmur, No Rub GI/Abdominal Exam: Normal Bowel Sounds, Soft, No Organomegaly, No Distention, No Abnormal Bruit, No Mass, Pelvis Stable, Tender (Slight, suprapubic only. Nontender elsewhere.) Rectal Exam: Deferred (Female) Exam: Other (Considerable amount of blood and clots in the vagina. Once cleared, the cervical os is open to about 1.5 to 2 cm, with some clot visible within the os.) Back Exam: Normal Inspection, Full Range of Motion. No: CVA Tenderness (L), CVA Tenderness (R) Extremities: Normal Inspection, Normal Range of Motion, No Pedal Edema, Normal Capillary Refill Neurological: Alert, Oriented, Normal Cognition, No Motor/Sensory Deficits Psychiatric: Normal Affect Skin Exam: Warm, Dry, Intact, Normal Color, No Rash Course - Vital Signs Last Recorded V/S: Last Vital Signs Temp 37.1 C 03/11/20 10:13 Pulse 90 03/11/20 10:13 Resp 18 03/11/20 10:13 BP 120/88 03/11/20 10:13 Pulse Ox 100 03/11/20 10:13 Orthostatic Blood Pressure [ 108/74 Standing] Orthostatic Blood Pressure [ 106/74 Sitting] Orthostatic Blood Pressure [ 105/70 Supine] - Orders/Labs/Meds Orders: Active Orders 24 hr Category Date Time Status Orthostatic Vital Signs [RC] STAT Care 03/11/20 14:47 Active Orthostatic Vital Signs [RC] STAT Care 03/11/20 15:15 Active Up ad Sheree [RC] PER UNIT ROUTINE Care 03/11/20 17:08 Active Vital Signs [RC] PER UNIT ROUTINE Care 03/11/20 17:08 Active Regular Diet [DIET] Diet 03/11/20 Dinner Active Acetaminophen [Tylenol] Med 03/11/20 17:08 Active 650 mg PO Q4H PRN Ibuprofen [Motrin] Med 03/11/20 17:08 Active 600 mg PO Q6H PRN Sodium Chloride 0.9% [Saline Flush] Med 03/11/20 17:09 Active 10 ml FLUSH ASDIRECTED PRN Convert IV to Saline Lock [OM.PC] Stat Oth 03/11/20 17:09 Ordered Resuscitation Status Routine Resus Stat 03/11/20 17:08 Ordered Medication Orders Acetaminophen (Tylenol) 650 mg PO Q4H PRN PRN Reason: Pain (mild 1-3) Ibuprofen (Motrin) 600 mg PO Q6H PRN PRN Reason: Pain (mild 1-3) Sodium Chloride (Saline Flush) 10 ml FLUSH ASDIRECTED PRN PRN Reason: Keep Vein Open Labs: Laboratory Tests 03/11/20 03/11/20 Range/Units 13:00 13:00 WBC 11.05 H (3.98-10.04) K/mm3 RBC 3.98 (3.98-5.22) M/mm3 Hgb 12.0 (11.2-15.7) gm/dl Hct 37.0 (34.1-44.9) % MCV 93.0 (79.4-94.8) fl MCH 30.2 (25.6-32.2) pg MCHC 32.4 (32.2-35.5) g/dl RDW Std Deviation 43.7 (36.4-46.3) fL Plt Count 217 (182-369) K/mm3 MPV 10.1 (9.4-12.3) fl Neutrophils % (Manual) 86 H (40-60) % Band Neutrophils % 0 (0-10) % Lymphocytes % (Manual) 8 L (20-40) % Atypical Lymphs % 0 % Monocytes % (Manual) 6 (2-10) % Eosinophils % (Manual) 0 L (0.7-5.8) % Basophils % (Manual) 0 L (0.1-1.2) Platelet Estimate Adequate RBC Morph Comment Normal HCG, Quant 9730.0 mIU/mL Meds: Medications Generic Name Dose Route Start Last Admin Trade Name Freq PRN Reason Stop Dose Admin Acetaminophen 650 mg 03/11/20 17:08 Tylenol PO Q4H PRN Pain (mild 1-3) Ibuprofen 600 mg 03/11/20 17:08 Motrin PO Q6H PRN Pain (mild 1-3) Sodium Chloride 10 ml 03/11/20 17:09 Saline Flush FLUSH ASDIRECTED PRN Keep Vein Open Discontinued Medications Generic Name Dose Route Start Last Admin Trade Name Freq PRN Reason Stop Dose Admin Lactated Ringer's 1,000 mls @ 999 mls/hr 03/11/20 13:22 03/11/20 13:52 Ringers, Lactated IV 03/11/20 14:22 999 mls/hr .BOLUS ONE Administration Lactated Ringer's 1,000 mls @ 999 mls/hr 03/11/20 15:10 03/11/20 15:17 Ringers, Lactated IV 03/11/20 16:10 999 mls/hr .BOLUS ONE Administration Lactated Ringer's 1,000 mls @ 999 mls/hr 03/11/20 15:14 03/11/20 15:18 Ringers, Lactated IV 03/11/20 16:14 Not Given .BOLUS ONE Lactated Ringer's 1,000 mls @ 200 mls/hr 03/11/20 17:00 03/11/20 17:22 Ringers, Lactated IV 200 mls/hr ASDIRECTED AGATHA Administration Misoprostol 800 mcg 03/11/20 14:51 03/11/20 15:03 Cytotec VAG 03/11/20 14:52 800 mcg ONETIME STA Administration - Re-Assessments/Exams Free Text/Narrative Re-Assessment/Exam: 03/11/20 11:33 As above, the patient has been spotting since 03/06/2020, with much more significant bleeding and passing clots since this morning. I have ordered a work-up that includes a CBC, quantitative hCG, and a transvaginal ultrasound. Since her blood type is O-positive, RhoGam is not necessary. 03/11/20 12:44 On pelvic examination, there was a considerable amount of blood and clots in the vagina. Once removed, the patient's cervix appears to be open about 1.5 to 2 cm, with some blood clot in the cervical os. No obvious tissue seen. 03/11/20 13:20 The patient's BP did not decrease between supine and sitting, however, her heart rate increased from 98 to 120. She did not tolerate standing, therefore a BP was not obtained, however, her heart rate increased to 155 when standing, indicating that she is in fact orthostatic. Based on the above, I have ordered a 1 L bolus of LR. 03/11/20 13:49 Transvaginal ultrasound is read by Dr. Clayton as: 1. Impending miscarriage as noted above. 03/11/20 14:[address] Ochoa at 14:19. She recommended that the patient be given misoprostol 800 mcg intravaginal x 1 now, then, if the patient is still orthostatic after 2 L of IV fluid, she may be placed into observation under her. 03/11/20 14:46 The above was discussed with the patient, using her sister who interpreted for her over the phone. The patient expressed good understanding. 03/11/20 15:15 Following 1 L of IV fluid, the patient is still orthostatic, due to a significant rise in her heart rate. I have ordered a second liter of LR, to be followed by repeat orthostatics. 03/11/20 16:31 Repeat orthostatics, following a second liter of IV fluid, are still positive. The patient will therefore require placement into observation. 03/11/20 17:[address] Ochoa at 17:01. She expressed some concern about placing the patient into observation, fearing that it would be against the patient's wishes, and noting that the patient can finish her miscarriage at home , especially if her bleeding has diminished. The patient had been in favor of placement when I spoke to her and her sister over the phone at 14:46. Dr. Ochoa agreed to place the patient into observation, however, she requested that I not give the patient any additional IV fluid. She stated that she will come in to evaluate the patient in about 2 hours. I will cancel the patient's current IV fluid, as requested. 03/11/20 17:13 The above plan for placement into observation was discussed with the patient. The patient confirmed that since receiving the misoprostol, her vaginal bleeding has decreased, although it has not stopped. She stated that she would prefer to be placed into observation, as opposed to going home, stating that her has her children, so they are safe, and she would feel more comfortable here. Departure - Departure Time of Disposition: 17:05 Disposition: Refer to Observation Condition: Good (Spontaneous ) Clinical Impression: Orthostasis, Spontaneous - Discharge Information *PRESCRIPTION DRUG MONITORING PROGRAM REVIEWED*: Not Applicable *COPY OF PRESCRIPTION DRUG MONITORING REPORT IN PATIENT POLI: Not Applicable Sepsis Event Note - Evaluation Sepsis Screening Result: No Definite Risk - Focused Exam Vital Signs: Vital Signs Temp Pulse Resp BP Pulse Ox 03/11/20 10:13 37.1 C 90 18 120/88 100 Date Exam was Performed: 03/11/20 Time Exam was Performed: 18:45 - My Orders Last 24 Hours: My Active Orders 03/11/20 14:47 Orthostatic Vital Signs [RC] STAT 03/11/20 15:15 Orthostatic Vital Signs [RC] STAT - Assessment/Plan Last 24 Hours: My Active Orders 03/11/20 14:47 Orthostatic Vital Signs [RC] STAT 03/11/20 15:15 Orthostatic Vital Signs [RC] STAT
[2020-03-11] MEDS ORDERED: Lactated Ringers 1,000 ML IV ONE ×3 (13:22→15:14)
--- NOTE | 2020-03-11 13:40 | US ---
1st trimester obstetrical ultrasound: Multiple real-time images were obtained transvaginally. Comparison: No previous study for current . Findings: Abnormal position of gestational sac is noted. Gestational sac is elongated and is located within the endocervical canal compatible with impending miscarriage. Ovaries appear within normal limits. Impression: 1. Impending miscarriage as noted above. Diagnostic code #3 This report was dictated in MDT
[2020-03-11] MEDS ORDERED: Misoprostol 25 MCG (1/4 of 100 MCG) Tab VAG STA (14:23)
[2020-03-11] MEDS ORDERED: Misoprostol 200 MCG Tab VAG STA (14:51)
[2020-03-11] MEDS ORDERED: Lactated Ringers 1,000 ML IV SCH (17:00)
[2020-03-11] MEDS ORDERED: Ibuprofen 600 MG Tab PO PRN (17:08)
[2020-03-11] MEDS ORDERED: Acetaminophen 325 MG Tab PO PRN (17:08)
[2020-03-11] MEDS ORDERED: Sodium Chloride 0.9% 10 ML Syringe FLUSH PRN (17:09)
--- NOTE | 2020-03-11 19:42 | PCM.LDHP ---
L&D History of Present Illness - General Date of Service: 03/11/20 Admit Problem/Dx: Patient Status Order with Admit Dx/Problem 03/11/20 17:13 Patient Status [ADT] Routine Admission Diagnosis/Problem Admission Diagnosis/Problem Orthostatic hypotension Source of Information: Patient History Limitations: Reports: No Limitations - History of Present Illness Introduction:: Patient is a 30 y/o G4 now P2022 who was known to have prior US on 03/08 in [place] which showed likely non viable . Was given precautions and was planned to follow up next week. 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 This, however, became very heavy this morning and prompted her to present to the ER. US done in ER showed gestational sac in endocervical canal. After US patient with heavier bleeding on exam by ER physician. Recommendations to ER were for them to place 800 mcg of vaginal cytotec to facilitate completion of miscarriage. This was done and she has done well since then. ER, however, concerned as patient orthostatic and so requested observation admission. Currently patient states she is feeling well. No pain. Having bleeding, but not heavy. Mostly is hungry as has not ate since before 1000 and is currently about 1900. 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 (Jul 2017) : 4 Para: 2 Neurological History: Reports: Migraines - Past Surgical History Neurological Surgical History: Reports: None Other Surgical History Comment: No surgical history Social & Family History - Family History Family Medical History: Noncontributory HEENT: Reports: None Cardiac: Reports: None Respiratory: Reports: None GI: Reports: None OBGYN: Reports: None Musculoskeletal: Reports: None Neurological: Reports: None Psychiatric: Reports: None - Tobacco Use Smoking Status *Q: Never Smoker - Caffeine Use Caffeine Use: Reports: None - Alcohol Use Alcohol Use History: No - Recreational Drug Use Recreational Drug Use: No - Living Situation & Occupation Living situation: Reports: , with Spouse, with Family (2 kids) Occupation: Unemployed H&P Review of Systems - Review of Systems: Review Of Systems: See Below General: Reports: No Symptoms Pulmonary: Reports: No Symptoms Cardiovascular: Reports: No Symptoms Gastrointestinal: Reports: No Symptoms Genitourinary: Reports: Other (scant bleeding) Musculoskeletal: Reports: No Symptoms Psychiatric: Reports: No Symptoms Neurological: Reports: No Symptoms L&D Exam - Exam Exam: See Below - Vital Signs Vital Signs: Last Vital Signs Temp 37.1 C 03/11/20 10:13 Pulse 85 03/11/20 19:03 Resp 18 03/11/20 19:03 BP 113/68 03/11/20 19:03 Pulse Ox 100 03/11/20 19:03 Orthostatic Blood Pressure [ 108/74 Standing] Orthostatic Blood Pressure [ 106/74 Sitting] Orthostatic Blood Pressure [ 105/70 Supine] Weight: 74.843 kg - Exam General: Alert, Oriented, Cooperative Lungs: Clear to Auscultation, Normal Respiratory Effort Cardiovascular: Regular Rate, Regular Rhythm GI/Abdominal Exam: Soft, Non-Tender Genitourinary: Other (scant bleeding noted on perineal pad ) Extremities: Normal Inspection Skin: Warm, Dry, Intact - Patient Data Lab Results Last 24 hrs: Laboratory Results - last 24 hr 03/11/20 03/11/20 03/11/20 Range/Units 13:00 13:00 17:40 WBC 11.05 H (3.98-10.04) K/mm3 RBC 3.98 (3.98-5.22) M/mm3 Hgb 12.0 10.7 L (11.2-15.7) gm/dl Hct 37.0 32.3 L (34.1-44.9) % MCV 93.0 (79.4-94.8) fl MCH 30.2 (25.6-32.2) pg MCHC 32.4 (32.2-35.5) g/dl RDW Std Deviation 43.7 (36.4-46.3) fL Plt Count 217 (182-369) K/mm3 MPV 10.1 (9.4-12.3) fl Neutrophils % (Manual) 86 H (40-60) % Band Neutrophils % 0 (0-10) % Lymphocytes % (Manual) 8 L (20-40) % Atypical Lymphs % 0 % Monocytes % (Manual) 6 (2-10) % Eosinophils % (Manual) 0 L (0.7-5.8) % Basophils % (Manual) 0 L (0.1-1.2) Platelet Estimate Adequate RBC Morph Comment Normal HCG, Quant 9730.0 mIU/mL Result Diagrams: 03/11/20 17:40 - Problem List (1) Miscarriage SNOMED Code(s): 33195187 ICD Code: O03.9 - COMPLETE OR UNSP SPONTANEOUS WITHOUT COMPLICATION Status: Acute Current Visit: Yes Problem List Initiated/Reviewed/Updated: Yes Orders Last 24hrs: Active Orders 24 hr Category Date Time Status Patient Status [ADT] Routine ADT 03/11/20 17:13 Active Orthostatic Vital Signs [RC] STAT Care 03/11/20 14:47 Active Orthostatic Vital Signs [RC] STAT Care 03/11/20 15:15 Active Up ad Sheree [RC] PER UNIT ROUTINE Care 03/11/20 17:08 Active Vital Signs [RC] PER UNIT ROUTINE Care 03/11/20 17:08 Active Regular Diet [DIET] Diet 03/11/20 Dinner Active Acetaminophen [Tylenol] Med 03/11/20 17:08 Active 650 mg PO Q4H PRN Ibuprofen [Motrin] Med 03/11/20 17:08 Active 600 mg PO Q6H PRN Sodium Chloride 0.9% [Saline Flush] Med 03/11/20 17:09 Active 10 ml FLUSH ASDIRECTED PRN Convert IV to Saline Lock [OM.PC] Stat Oth 03/11/20 17:09 Ordered Resuscitation Status Routine Resus Stat 03/11/20 17:08 Ordered Medication Orders Acetaminophen (Tylenol) 650 mg PO Q4H PRN PRN Reason: Pain (mild 1-3) Ibuprofen (Motrin) 600 mg PO Q6H PRN PRN Reason: Pain (mild 1-3) Sodium Chloride (Saline Flush) 10 ml FLUSH ASDIRECTED PRN PRN Reason: Keep Vein Open Assessment/Plan Comment:: * SLIV * Ibuprofen and tylenol for pain * Monitor bleeding * General diet * Discharge in AM
--- NOTE | 2020-03-12 04:21 | PCM.DCSUM1 ---
Discharge Summary - Discharge Data Discharge Date: 03/12/20 Discharge Disposition: Home, Self-Care 01 Condition: Good - Referral to Home Health Primary Care Physician: Daphne Ochoa MD - Patient Summary/Data Complications: None Consults: None Recommended Follow-up Testing/Procedures: follow up as needed Hospital Course: 30 y/o admitted after SAB at about 6 weeks gestation via ultrasound assessment. Given Cytotec in ER to complete miscarriage and did well with that. Admitted due to concerns of orthostatic vitals in ER. Overnight did well without further fluids or treatments. Bleeding minimal. Discharged home on HD# 2 - Patient Instructions Diet: Regular Diet as Tolerated Activity: As Tolerated Activity, Other: Pelvic rest for 2 weeks Driving: May Drive Today Showering/Bathing: May Shower Showering/Bathing, Other: may bathe Notify Provider of: Fever, Increased Pain, Swelling and Redness, Drainage, Nausea and/or Vomiting - Discharge Plan *PRESCRIPTION DRUG MONITORING PROGRAM REVIEWED*: Not Applicable *COPY OF PRESCRIPTION DRUG MONITORING REPORT IN PATIENT POLI: Not Applicable Home Medications: Home Meds Vit Calc,Iron,Folic [ Vitamins] 1 each PO DAILY 05/20/18 [ History] Acetaminophen [Tylenol] 650 mg PO Q4H PRN tablet 03/12/20 [Rx] Ibuprofen [Motrin] 600 mg PO Q6H PRN tablet 03/12/20 [Rx] Referrals: Daphne Ochoa MD [Primary Care Provider] - (as needed) - Discharge Summary/Plan Comment DC Time >30 min.: No - Patient Data Vitals - Most Recent: Last Vital Signs Temp 37.5 C 03/11/20 23:42 Pulse 83 03/11/20 23:42 Resp 18 03/11/20 23:42 BP 103/61 03/11/20 23:42 Pulse Ox 96 03/11/20 23:42 Orthostatic Blood Pressure [ 108/74 Standing] Orthostatic Blood Pressure [ 106/74 Sitting] Orthostatic Blood Pressure [ 105/70 Supine] Weight - Most Recent: 74.843 kg I&O - Last 24 hours: Intake & Output 03/11/20 03/11/20 03/12/20 14:59 22:59 06:59 Intake Total 120 Output Total 300 Balance -180 Lab Results - Last 24 hrs: Laboratory Results - last 24 hr 03/11/20 03/11/20 03/11/20 Range/Units 13:00 13:00 17:40 WBC 11.05 H (3.98-10.04) K/mm3 RBC 3.98 (3.98-5.22) M/mm3 Hgb 12.0 10.7 L (11.2-15.7) gm/dl Hct 37.0 32.3 L (34.1-44.9) % MCV 93.0 (79.4-94.8) fl MCH 30.2 (25.6-32.2) pg MCHC 32.4 (32.2-35.5) g/dl RDW Std Deviation 43.7 (36.4-46.3) fL Plt Count 217 (182-369) K/mm3 MPV 10.1 (9.4-12.3) fl Neutrophils % (Manual) 86 H (40-60) % Band Neutrophils % 0 (0-10) % Lymphocytes % (Manual) 8 L (20-40) % Atypical Lymphs % 0 % Monocytes % (Manual) 6 (2-10) % Eosinophils % (Manual) 0 L (0.7-5.8) % Basophils % (Manual) 0 L (0.1-1.2) Platelet Estimate Adequate RBC Morph Comment Normal HCG, Quant 9730.0 mIU/mL Med Orders - Current: Current Medications Acetaminophen (Tylenol) 650 mg PO Q4H PRN PRN Reason: Pain (mild 1-3) Ibuprofen (Motrin) 600 mg PO Q6H PRN PRN Reason: Pain (mild 1-3) Sodium Chloride (Saline Flush) 10 ml FLUSH ASDIRECTED PRN PRN Reason: Keep Vein Open Discontinued Medications Lactated Ringer's (Ringers, Lactated) 1,000 mls @ 999 mls/hr IV .BOLUS ONE Stop: 03/11/20 14:22 Last Admin: 03/11/20 13:52 Dose: 999 mls/hr Lactated Ringer's (Ringers, Lactated) 1,000 mls @ 999 mls/hr IV .BOLUS ONE Stop: 03/11/20 16:10 Last Admin: 03/11/20 15:17 Dose: 999 mls/hr Lactated Ringer's (Ringers, Lactated) 1,000 mls @ 999 mls/hr IV .BOLUS ONE Stop: 03/11/20 16:14 Last Admin: 03/11/20 15:18 Dose: Not Given Lactated Ringer's (Ringers, Lactated) 1,000 mls @ 200 mls/hr IV ASDIRECTED [facility] Last Admin: 03/11/20 17:22 Dose: 200 mls/hr Misoprostol (Cytotec) 800 mcg VAG ONETIME STA Stop: 03/11/20 14:52 Last Admin: 03/11/20 15:03 Dose: 800 mcg
--- NOTE | 2020-03-12 04:21 | PCM.PN ---
- General Info Date of Service: 03/12/20 Functional Status: Reports: Pain Controlled, Tolerating Diet, Ambulating, Urinating - Review of Systems General: Reports: No Symptoms Pulmonary: Reports: No Symptoms Cardiovascular: Reports: No Symptoms Gastrointestinal: Reports: No Symptoms Genitourinary: Reports: No Symptoms (reports bleeding as very light ) Musculoskeletal: Reports: No Symptoms Neurological: Reports: No Symptoms - Patient Data Vitals - Most Recent: Last Vital Signs Temp 37.5 C 03/11/20 23:42 Pulse 83 03/11/20 23:42 Resp 18 03/11/20 23:42 BP 103/61 03/11/20 23:42 Pulse Ox 96 03/11/20 23:42 Orthostatic Blood Pressure [ 108/74 Standing] Orthostatic Blood Pressure [ 106/74 Sitting] Orthostatic Blood Pressure [ 105/70 Supine] Weight - Most Recent: 74.843 kg I&O - Last 24 Hours: Intake & Output 03/11/20 03/11/20 03/12/20 14:59 22:59 06:59 Intake Total 120 Output Total 300 Balance -180 Lab Results Last 24 Hours: Laboratory Results - last 24 hr 03/11/20 03/11/20 03/11/20 Range/Units 13:00 13:00 17:40 WBC 11.05 H (3.98-10.04) K/mm3 RBC 3.98 (3.98-5.22) M/mm3 Hgb 12.0 10.7 L (11.2-15.7) gm/dl Hct 37.0 32.3 L (34.1-44.9) % MCV 93.0 (79.4-94.8) fl MCH 30.2 (25.6-32.2) pg MCHC 32.4 (32.2-35.5) g/dl RDW Std Deviation 43.7 (36.4-46.3) fL Plt Count 217 (182-369) K/mm3 MPV 10.1 (9.4-12.3) fl Neutrophils % (Manual) 86 H (40-60) % Band Neutrophils % 0 (0-10) % Lymphocytes % (Manual) 8 L (20-40) % Atypical Lymphs % 0 % Monocytes % (Manual) 6 (2-10) % Eosinophils % (Manual) 0 L (0.7-5.8) % Basophils % (Manual) 0 L (0.1-1.2) Platelet Estimate Adequate RBC Morph Comment Normal HCG, Quant 9730.0 mIU/mL Med Orders - Current: Current Medications Acetaminophen (Tylenol) 650 mg PO Q4H PRN PRN Reason: Pain (mild 1-3) Ibuprofen (Motrin) 600 mg PO Q6H PRN PRN Reason: Pain (mild 1-3) Sodium Chloride (Saline Flush) 10 ml FLUSH ASDIRECTED PRN PRN Reason: Keep Vein Open Discontinued Medications Lactated Ringer's (Ringers, Lactated) 1,000 mls @ 999 mls/hr IV .BOLUS ONE Stop: 03/11/20 14:22 Last Admin: 03/11/20 13:52 Dose: 999 mls/hr Lactated Ringer's (Ringers, Lactated) 1,000 mls @ 999 mls/hr IV .BOLUS ONE Stop: 03/11/20 16:10 Last Admin: 03/11/20 15:17 Dose: 999 mls/hr Lactated Ringer's (Ringers, Lactated) 1,000 mls @ 999 mls/hr IV .BOLUS ONE Stop: 03/11/20 16:14 Last Admin: 03/11/20 15:18 Dose: Not Given Lactated Ringer's (Ringers, Lactated) 1,000 mls @ 200 mls/hr IV ASDIRECTED AGATHA Last Admin: 03/11/20 17:22 Dose: 200 mls/hr Misoprostol (Cytotec) 800 mcg VAG ONETIME STA Stop: 03/11/20 14:52 Last Admin: 03/11/20 15:03 Dose: 800 mcg - Exam General: Alert, Oriented, Cooperative Lungs: Clear to Auscultation, Normal Respiratory Effort Cardiovascular: Regular Rate, Regular Rhythm GI/Abdominal Exam: Soft, Non-Tender Extremities: Normal Inspection Sepsis Event Note - Evaluation Sepsis Screening Result: No Definite Risk - Focused Exam Vital Signs: Vital Signs Temp Pulse Pulse Resp BP BP Pulse Ox 03/11/20 23:42 37.5 C 83 18 103/61 96 03/11/20 19:38 103/73 03/11/20 19:37 88 100 03/11/20 19:36 36.9 C 87 96/66 98 03/11/20 19:03 85 18 113/68 100 Date Exam was Performed: 03/12/20 Time Exam was Performed: 07:31 - Problem List & Annotations (1) Miscarriage SNOMED Code(s): 99697580 Code(s): O03.9 - COMPLETE OR UNSP SPONTANEOUS WITHOUT COMPLICATION Status: Acute Current Visit: Yes - Problem List Review Problem List Initiated/Reviewed/Updated: Yes - My Orders Last 24 Hours: My Active Orders 03/11/20 17:08 Up ad Sheree [RC] BID Vital Signs [RC] Q4HR Acetaminophen [Tylenol] 650 mg PO Q4H PRN Ibuprofen [Motrin] 600 mg PO Q6H PRN Resuscitation Status Routine 03/11/20 17:09 Sodium Chloride 0.9% [Saline Flush] 10 ml FLUSH ASDIRECTED PRN Convert IV to Saline Lock [OM.PC] Stat 03/11/20 17:13 Patient Status [ADT] Routine 03/11/20 Dinner Regular Diet [DIET] - Assessment Assessment:: HD#2 - Plan Plan:: * Doing well. No concerns overnight. Discharge today. Interested in OCP and so [facility]
== END 2020-03-12 09:50 | disposition home or self-care (01) ==
LOC: JD.ED 10:05 → JD.MS 17:13
PROVIDERS: ADMIT Obstetrics & Gynecology; ATTEND Obstetrics & Gynecology
DX: O03.9 Complete or unspecified spontaneous abortion without complication (principal); I95.1 Orthostatic hypotension
CPT/HCPCS: 36415; 76817; 84702; 85007; 85014; 85018; 85027; 96360; 96361; 99285; A9270; J7120

== ENCOUNTER 2020-09-17 08:26 | Emergency (ER) | payer OTHER ==
--- NOTE | 2020-09-17 08:42 | EDM.PDOC ---
ED HPI GENERAL MEDICAL PROBLEM - General Chief Complaint: Headache Stated Complaint: HEADACHE/L HAND NUMB Time Seen by Provider: 09/17/20 08:39 - History of Present Illness INITIAL COMMENTS - FREE TEXT/NARRATIVE: 30-year-old female presents the emergency room with headaches dizziness bilateral hand and arm numbness. This started 7 or 8 days ago. The patient gets quite a bit of tension in her neck and this seems to radiate over the top and sides of her head to her forehead. When she gets the headaches at the front of her head after the radiating pain she developed some hand numbness and at times she still sees possible floaters. But her vision is not as good as it normally is when this happens. The patient notices that when she eats it helps with this she is not nauseated per se however she states that she does not have the appetite to eat even though she feels hungry. Patient has not had problems like this in the past. The patient does seem to have some chronic neck discomfort and tightness. She has not noticed any fevers or chills. Triggering events seem to be when her child is talking to her and any change in noise or lighting. Episodes tend to occur mostly in the late afternoons. She is a little anxious at this point but really does not have a headache she has some neck discomfort. Headache Pain Score (Numeric/FACES): 6 - Related Data Allergies Allergy/AdvReac Type Severity Reaction Status Date / Time No Known Allergies Allergy Verified 09/17/20 08:43 Home Meds: Home Meds Vit Calc,Iron,Folic [ Vitamins] 1 each PO DAILY 05/20/18 [History] Acetaminophen [Tylenol] 650 mg PO Q4H PRN tablet 03/12/20 [Rx] Ibuprofen [Motrin] 600 mg PO Q6H PRN tablet 03/12/20 [Rx] Amoxicillin/Potassium Clav [Augmentin 875-125 Tablet] 1 each PO 09/13/20 [History] LORazepam [Ativan] 0.5 mg PO DAILY PRN #7 tab 09/17/20 [Rx] Past Medical History - Past Health History Medical/Surgical History: Denies Medical/Surgical History 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) Other 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 TORCH OPERATOR History: 2 misscariages Neurological History: Reports: Migraines Hematologic History: Reports: None - Infectious Disease History Infectious Disease History: Reports: None - Past Surgical History Neurological Surgical History: Reports: None Other Surgical History Comment: No surgical history Social & Family History - Family History Family Medical History: Noncontributory HEENT: Reports: None Cardiac: Reports: None Respiratory: Reports: None GI: Reports: None Other Family History: Maternal Grandfather is Diabetic OBGYN: Reports: None Musculoskeletal: Reports: None Neurological: Reports: None Psychiatric: Reports: None Oncologic: Reports: Other (See Below) Other Oncologic Family History: Paternal Uncle Gastric Cancer - Caffeine Use Caffeine Use: Reports: None - Living Situation & Occupation Living situation: Reports: , with Spouse, with Family (2 kids) Occupation: Unemployed ED ROS GENERAL - Review of Systems Review Of Systems: See Below Constitutional: Reports: No Symptoms HEENT: Reports: Other (Vague problems with vision) Respiratory: Reports: No Symptoms Cardiovascular: Reports: No Symptoms Endocrine: Reports: No Symptoms GI/Abdominal: Reports: No Symptoms : Reports: No Symptoms Musculoskeletal: Reports: Neck Pain Skin: Reports: No Symptoms Neurological: Reports: Headache Psychiatric: Reports: Anxiety Hematologic/Lymphatic: Reports: No Symptoms Immunologic: Reports: No Symptoms - Physical Exam Exam: See Below Exam Limited By: No Limitations General Appearance: Alert, No Apparent Distress Eye Exam: Bilateral Eye: EOMI, Normal Inspection, PERRL Ears: Normal External Exam, Normal Canal, Hearing Grossly Normal, Normal TMs Nose: Normal Inspection, Normal Mucosa, No Blood Throat/Mouth: Normal Inspection, Normal Lips, Normal Teeth, Normal Gums, Normal Oropharynx, Normal Voice, No Airway Compromise Head Exam: Atraumatic, Normocephalic Neck: Normal Inspection, Supple, Non-Tender, Full Range of Motion, Other (Fairly prominent muscle tightness bilaterally in the paraspinous muscles with more prominent discomfort at the insertion at the base of the skull). No: Tender Midline Respiratory/Chest: No Respiratory Distress, Lungs Clear, Normal Breath Sounds Cardiovascular: Regular Rate, Rhythm, No Edema, No Murmur GI/Abdominal: Normal Bowel Sounds, Soft, Non-Tender Neuro Exam (Abbreviated): Other (Annual nerves II through XII grossly intact all muscle groups the upper and lower extremities are equal and appropriate bilaterally deep tendon reflexes are equal and appropriate at the brachioradialis and patella tendons bilaterally. Cerebellar testing is entirely within normal limits) Back Exam: Normal Inspection. No: CVA Tenderness (L), CVA Tenderness (R) Course - Vital Signs Last Recorded V/S: Last Vital Signs Temp 36.7 C 09/17/20 08:38 Pulse 100 09/17/20 08:38 Resp 16 09/17/20 08:38 BP 122/76 09/17/20 08:38 Pulse Ox 98 09/17/20 08:38 - Orders/Labs/Meds Labs: Laboratory Tests 09/17/20 09/17/20 Range/Units 09:25 09:25 WBC 10.34 H (3.98-10.04) K/mm3 RBC 4.17 (3.98-5.22) M/mm3 Hgb 12.2 D (11.2-15.7) gm/dl Hct 38.4 (34.1-44.9) % MCV 92.1 (79.4-94.8) fl MCH 29.3 (25.6-32.2) pg MCHC 31.8 L (32.2-35.5) g/dl RDW Std Deviation 44.1 (36.4-46.3) fL Plt Count 231 (182-369) K/mm3 MPV 10.3 (9.4-12.3) fl Neut % (Auto) 85.6 H (34.0-71.1) % Lymph % (Auto) 6.2 L (19.3-51.7) % [place] % (Auto) 7.4 (4.7-12.5) % Eos % (Auto) 0.4 L (0.7-5.8) Baso % (Auto) 0.1 (0.1-1.2) % Neut # (Auto) 8.86 H (1.56-6.13) K/mm3 Lymph # (Auto) 0.64 L (1.18-3.74) K/mm3 [place] # (Auto) 0.76 H (0.24-0.36) K/mm3 Eos # (Auto) 0.04 (0.04-0.36) K/mm3 Baso # (Auto) 0.01 (0.01-0.08) K/mm3 Manual Slide Review Abnormal smear Sodium 139 (136-145) mEq/L Potassium 3.7 (3.5-5.1) mEq/L Chloride 105 (98-107) mEq/L Carbon Dioxide 25 (21-32) mEq/L Anion Gap 12.7 (5-15) BUN 6 L (7-18) mg/dL Creatinine 0.6 (0.55-1.02) mg/dL Est Cr Clr Drug Dosing TNP Estimated GFR (MDRD) > 60 (>60) mL/min BUN/Creatinine Ratio 10.0 L (14-18) Glucose 107 H (74-106) mg/dL Calcium 8.4 L (8.5-10.1) mg/dL Total Bilirubin 0.5 (0.2-1.0) mg/dL AST 13 L (15-37) U/L ALT 24 (14-59) U/L Alkaline Phosphatase 60 (46-116) U/L Total Protein 6.8 (6.4-8.2) g/dl Albumin 3.5 (3.4-5.0) g/dl Globulin 3.3 gm/dL Albumin/Globulin Ratio 1.1 (1-2) TSH 3rd Generation 1.138 (0.358-3.74) uIU/mL Meds: Medications Discontinued Medications Generic Name Dose Route Start Last Admin Trade Name Freq PRN Reason Stop Dose Admin Diphenhydramine HCl 50 mg 09/17/20 09:17 09/17/20 09:31 Benadryl IVPUSH 09/17/20 09:18 50 mg ONETIME ONE Administration Lactated Ringer's 1,000 mls @ 999 mls/hr 09/17/20 09:17 09/17/20 09:32 Ringers, Lactated IV 09/17/20 10:17 999 mls/hr .BOLUS ONE Administration Prochlorperazine Edisylate 5 51 mls @ 150 mls/hr 09/17/20 09:17 09/17/20 09:34 mg/ Sodium Chloride IV 09/17/20 09:37 150 mls/hr ONETIME ONE Administration Lorazepam 0.5 mg 09/17/20 09:17 09/17/20 09:33 Ativan IVPUSH 09/17/20 09:18 0.5 mg ONETIME ONE Administration Prochlorperazine Edisylate Confirm 09/17/20 09:25 Compazine Administered 09/17/20 09:26 Dose 10 mg .ROUTE .STK-MED ONE - Re-Assessments/Exams Free Text/Narrative Re-Assessment/Exam: 09/17/20 09:31 Her headaches and these episodes seem to be multifactorial I do wonder if maybe she has some hypoglycemia that could be triggering these as they do get better if she makes herself eat. She has some muscle tension on her exam in the paraspinous muscles in the cervical region. We will check some baseline labs including a TSH. I do not believe a CT evaluation would be helpful at this point perhaps an MRI down the road if issues do not resolve. I think there could be multifactorial causes to this such as tension and/or anxiety. Patient does have a history of migraines however this is not like those and she stopped having migraines sometime back. Atypical migraines is not excluded. This could be a cluster type headache however with the muscle tightness and tension I am not certain. 09/17/20 11:46 Patient is doing much much better would like to go home. At this point I think is reasonable. Did review her labs. No smoking guns however her calcium is a little low I did discuss this with her and recommend calcium supplementation. I have also recommended that she start magnesium 400 mg a day might help with her neck tightness. I will discharge her with some Ativan 0.5 1 daily as needed. She is strongly encouraged to up with her regular healthcare provider this next week. Departure - Departure Time of Disposition: 11:47 Disposition: Home, Self-Care 01 Clinical Impression: Tension headache, Anxiety - Discharge Information Referrals: Claudia Alvarenga BILINGUAL MEDICAL ASSISTANT [Primary Care Provider] - Forms: ED Department Discharge Additional Instructions: Return to the emergency room with any questions problems or worsening symptoms. Follow-up with your regular healthcare provider this next week. Start calcium supplements as you are calcium levels are low and this can cause big problems for you later in life. Also start magnesium oxide 400 mg a day. You have been given a prescription for Ativan, or lorazepam, this is for anxiety and is also good for neck tightness. Use 1 daily only if needed. Allow 12 hours after using this medication before driving or returning to work. Sepsis Event Note (ED) - Focused Exam Vital Signs: Vital Signs Temp Pulse Resp BP Pulse Ox 09/17/20 08:38 36.7 C 100 16 122/76 98
[2020-09-17] MEDS ORDERED: Prochlorperazine 5 MG in Sodium Chloride 0.9% 50 ML IV ONE (09:17)
[2020-09-17] MEDS ORDERED: LORazepam 2 MG/ML SDV IVPUSH ONE (09:17)
[2020-09-17] MEDS ORDERED: diphenhydrAMINE 50 MG/ML SDV IVPUSH ONE (09:17)
[2020-09-17] MEDS ORDERED: Lactated Ringers 1,000 ML IV ONE (09:17)
[2020-09-17] MEDS ORDERED: Prochlorperazine 10 MG/2 ML SDV ONE (09:25)
== END 2020-09-17 12:55 | disposition home or self-care (01) ==
LOC: JD.ED 08:26
DX: G44.209 Tension-type headache, unspecified, not intractable (principal); F41.9 Anxiety disorder, unspecified
CPT/HCPCS: 36415; 80053; 84443; 85025; 96365; 96375; 99284; J0780; J1200; J2060; J7120; 99283

== ENCOUNTER 2023-06-07 10:27 | Inpatient (IN) | payer OTHER ==
[2023-06-07] MEDS ORDERED: Sodium Chloride 0.9% 10 ML Syringe FLUSH PRN (10:40)
[2023-06-07] MEDS ORDERED: Ondansetron 4 MG/2 ML SDV IVPUSH PRN (10:40)
[2023-06-07] MEDS ORDERED: Nalbuphine 10 MG/0.5 ML Syringe IVPUSH PRN (10:40)
[2023-06-07] MEDS ORDERED: Calcium Carbonate 500 MG Tab.Chew PO PRN (10:40)
[2023-06-07] MEDS ORDERED: Lactated Ringers 1,000 ML IV SCH (10:45)
[2023-06-07] MEDS ORDERED: Oxytocin/Lactated Ringers 10 UNIT/1,000 ML BAG IV SCH ×2 (10:45)
[2023-06-07] MEDS ORDERED: Ampicillin 2 GM in Sodium Chloride 0.9% 100 ML IV ONE (11:00)
[2023-06-07] MEDS ORDERED: Ampicillin 1 GM in Sodium Chloride 0.9% 100 ML IV SCH (15:00)
[2023-06-07] MEDS ORDERED: Misoprostol 200 MCG Tab ONE (18:14)
[2023-06-07] MEDS ORDERED: Misoprostol 200 MCG Tab PO STA (18:21)
[2023-06-07] MEDS: Morphine 2 MG/ML SYRINGE IVPUSH PRN ×2 (18:32→21:05)
[2023-06-07] MEDS ORDERED: Docusate Sodium 100 MG Cap PO PRN (18:37)
[2023-06-07] MEDS ORDERED: Benzocaine/Menthol 20%-0.5% Spray 78 GM Cannister TOP PRN (18:37)
[2023-06-07] MEDS ORDERED: Acetaminophen 325 MG Tab PO PRN (18:37)
[2023-06-07] MEDS ORDERED: Witch Hazel Medicated Pads 40/Jar TOP PRN (18:37)
[2023-06-07] MEDS ORDERED: Lactated Ringers 1,000 ML ONE (20:55)
[2023-06-07] MEDS ORDERED: Oxytocin/Lactated Ringers 10 UNIT/1,000 ML BAG IV ONE (20:58)
[2023-06-07] MEDS ORDERED: Ondansetron 4 MG/2 ML SDV IVPUSH ONE (21:06)
[2023-06-07] MEDS ORDERED: Methylergonovine 0.2 MG/ML SDV IM ONE (21:15)
[2023-06-07 22:00] LABS: HEMATOCRIT 32.4 % (34.1-44.9); HEMOGLOBIN 10.5 gm/dl (11.2-15.7); MEAN CORPUSCULAR HEMOGLOBIN 32.3 pg (25.6-32.2); MEAN CORPUSCULAR HGB CONC 32.4 g/dl (32.2-35.5); MEAN CORPUSCULAR VOLUME 99.7 fl (79.4-94.8); MEAN PLATELET VOLUME 10.8 fl (9.4-12.3); PLATELET COUNT,PLT 141 K/mm3 (182-369); RED BLOOD CELL COUNT 3.25 M/mm3 (3.98-5.22); WHITE BLOOD CELL COUNT,WBC 15.56 K/mm3 (3.98-10.04)
[2023-06-08] MEDS ORDERED: Acetaminophen/HYDROcodone 325-5 MG Tab PO PRN (08:48)
[2023-06-08] MEDS: Ibuprofen 600 MG Tab PO PRN (20:42)
[2023-06-09] MEDS: Ibuprofen 600 MG Tab PO PRN (03:01)
== END 2023-06-09 15:10 | disposition home or self-care (01) | DRG 807 ==
LOC: JD.OB 10:27 → UNDOADMOB 10:27 → JD.OB 18:22 → OBSVTOIN 18:22 → JD.OB 23:21
PROVIDERS: ADMIT Obstetrics & Gynecology; ATTEND Obstetrics & Gynecology
PROC: 10E0XZZ Delivery of Products of Conception, External Approach (ICD-10-PCS; principal; 2023-06-07)
PROC: 3E0P7VZ Introduction of Hormone into Female Reproductive, Via Natural or Artificial Opening (ICD-10-PCS; 2023-06-07)
PROC: 10907ZC Drainage of Amniotic Fluid, Therapeutic from Products of Conception, Via Natural or Artificial Opening (ICD-10-PCS; 2023-06-07)
PROC: 3E033VJ Introduction of Other Hormone into Peripheral Vein, Percutaneous Approach (ICD-10-PCS; 2023-06-07)
DX: O99.824 Streptococcus B carrier state complicating childbirth (principal); Z37.0 Single live birth; O72.1 Other immediate postpartum hemorrhage; O77.0 Labor and delivery complicated by meconium in amniotic fluid; Z3A.40 40 weeks gestation of pregnancy
CPT/HCPCS: 36415; 51701; 59025; 59409; 85027; 86592; 86850; 86900; 86901; A9270-GY; J0290; J2210; J2270; J2405; J2590; J3490; J7120

== ENCOUNTER 2025-05-25 15:04 | Inpatient (IN) | payer OTHER ==
[2025-05-25] MEDS ORDERED: Sodium Chloride 0.9% 10 ML Syringe FLUSH PRN (15:15)
[2025-05-25] MEDS ORDERED: Ondansetron 4 MG/2 ML SDV IVPUSH PRN (15:15)
[2025-05-25] MEDS ORDERED: Oxytocin/0.9 % Sodium Chloride 30 UNIT/500 ML BAG IV SCH (15:15)
[2025-05-25] MEDS ORDERED: Nalbuphine 10 MG/1 ML Vial IVPUSH PRN (15:15)
[2025-05-25 15:42] LABS: BASOPHILS ABSOLUTE AUTO 0.0 K/mm3 (0.0-0.2); BASOPHILS PERCENT AUTO 0.2 % (0.0-1.0); EOSINOPHILS ABSOLUTE AUTO 0.0 K/mm3 (0.0-0.4); EOSINOPHILS PERCENT AUTO 0.5 % (0.0-6.0); IMMATURE GRAN ABSOLUTE AUTO 0.10 K/mm3 (0.00-0.05); IMMATURE GRAN PERCENT AUTO 1.2 % (0.0-0.4); LYMPHOCYTES ABSOLUTE AUTO 0.8 K/mm3 (1.0-4.8); LYMPHOCYTES PERCENT AUTO 10.0 % (24.0-44.0); MEAN PLATELET VOLUME 11.0 fl (9.4-12.3); MONOCYTES ABSOLUTE AUTO 0.7 K/mm3 (0.0-0.8); MONOCYTES PERCENT AUTO 9.1 % (0.0-8.0); NEUTROPHILS ABSOLUTE AUTO 6.3 K/mm3 (1.8-7.7); NEUTROPHILS PERCENT AUTO 79.0 % (41.0-71.0); NRBC ABSOLUTE 0.00 (0.00-0.02); NRBC PERCENT 0.0 % (0.0-0.2); PLATELET COUNT,PLT 146 K/mm3 (150-400); RED BLOOD CELL COUNT 3.90 M/mm3 (4.10-5.30); WHITE BLOOD CELL COUNT,WBC 8.02 K/mm3 (3.9-11.3)
[2025-05-25] MEDS: Lactated Ringers 1,000 ML IV SCH (15:56)
[2025-05-25] MEDS: Oxytocin/0.9 % Sodium Chloride 30 UNIT/500 ML BAG IV SCH (15:58)
[2025-05-25] MEDS ORDERED: Sodium Chloride 0.9% 10 ML Syringe FLUSH SCH (21:00)
[2025-05-25] MEDS ORDERED: diphenhydrAMINE 50 MG/ML SDV IVPUSH PRN (21:50)
[2025-05-25] MEDS: fentaNYL 100 MCG/2 ML SDV EPIDUR PRN (22:01)
[2025-05-25] MEDS: Bupivacaine/fentaNYL/NS 100 ML Bag EPIDUR PRN (22:01)
[2025-05-25] MEDS: ePHEDrine 50 MG/ML SDV IVPUSH PRN (22:39)
[2025-05-26] MEDS: Witch Hazel Medicated Pads 40/Jar TOP PRN (01:24)
[2025-05-26] MEDS: Benzocaine/Menthol 20%-0.5% Spray 78 GM Cannister TOP PRN (01:24)
== END 2025-05-27 12:00 | disposition home or self-care (01) | DRG 806 ==
LOC: JD.OB 15:04 → OBSVTOIN 23:15 → JD.OB 23:15
PROVIDERS: ADMIT Obstetrics & Gynecology; ATTEND Obstetrics & Gynecology
PROC: 10907ZC Drainage of Amniotic Fluid, Therapeutic from Products of Conception, Via Natural or Artificial Opening (ICD-10-PCS; principal; 2025-05-25)
PROC: 3E033VJ Introduction of Other Hormone into Peripheral Vein, Percutaneous Approach (ICD-10-PCS; principal; 2025-05-25)
PROC: 3E0R3BZ Introduction of Anesthetic Agent into Spinal Canal, Percutaneous Approach (ICD-10-PCS; principal; 2025-05-25)
PROC: 10E0XZZ Delivery of Products of Conception, External Approach (ICD-10-PCS; principal; 2025-05-25)
DX: O48.0 Post-term pregnancy (principal); O72.1 Other immediate postpartum hemorrhage; Z37.0 Single live birth; Z3A.40 40 weeks gestation of pregnancy; Z98.890 Other specified postprocedural states; Z79.899 Other long term (current) drug therapy
CPT/HCPCS: 36415; 51701; 59025; 59409; 85025; 86592; 86850; 86900; 86901; A9270-GY; J0665; J2210; J3010; J3490; J7120; J7999